=== PATIENT | male | born 2000 | race Caucasian/White ===

== ENCOUNTER 2021-07-06 16:20 | Emergency (ER) | payer MEDICAID, SELFPAY ==
[2021-07-06] MEDS: LORazepam 2 MG/ML VIAL IM (16:42)
[2021-07-06 16:45] VITALS: BMI 20.7
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
--- NOTE | 2021-07-06 17:05 | PC.NURSE ---
Pt non-verbal, unable to make needs known. Refusing vital signs. Pt noted to be jumping up and down in place. Pt on 1:1 at this time. Will continue to monitor.
[2021-07-06 17:23] LABS: COVID-19 Test Negative (Negative)
[2021-07-06] MEDS: Haloperidol Lactate 5 MG/ML VIAL IM (17:32)
[2021-07-06] MEDS: diphenhydrAMINE HCL 50 MG/ML VIAL IM (17:34)
[2021-07-06 18:48] VITALS: RESP 17
--- NOTE | 2021-07-06 22:31 | PC.NURSE ---
Patient pacing back and fortyh was changed due tyo incontinence, offered sandwich, cheese sticks and drink. Awaiting bhn eval and med confirmation by . CHD worker at bedside, will continue to monitor.
[2021-07-06] MEDS: diazePAM 5 MG TABLET 10 MG PO (22:58)
--- NOTE | 2021-07-07 07:55 | PC.NURSE ---
pt pacing in his room change of shift chd sitter.
[2021-07-07] MEDS: diazePAM 5 MG TABLET PO (08:45)
--- NOTE | 2021-07-07 09:45 | PC.NURSE ---
plan is to be discharged back to residential once the ride arrives.
--- NOTE | 2021-07-07 10:46 | PC.NURSE ---
care team called and they are arranging a ride home for the pt. the fpc sitter is present but doesnt have the lock for the seatbelt needed to transport the pt back.
--- NOTE | 2021-07-07 12:44 | PC.NURSE ---
Pt pacing around unit, remaining calm. No aggressive outburst. [facility] respiratory therapist took patient home with safety precautions in place. Pt left without issues.
--- NOTE | 2021-07-07 12:46 | MHC.CARE ---
This ad copy writer spoke with Samara Song [employer] Research Engineer at PT's [facility]. She reports that Pt. can understand some basic signs such as eat, drink, hello, and sign. She states that Pt. exibits grabbing, looking over someones head, ringing of hands, and humming when he is about to get escalated. She reports that escalation was stamping his feet, and banging the reinoso.
== END 2021-07-07 12:46 | disposition home or self-care (01) ==
LOC: HO.ED 19:51
PROVIDERS: Physician Assistant; Emergency Provider Internal Medicine
DX: F91.9 Conduct disorder, unspecified (principal); F41.9 Anxiety disorder, unspecified; F84.0 Autistic disorder; Z20.822 Contact with and (suspected) exposure to COVID-19; Z79.899 Other long term (current) drug therapy
CPT/HCPCS: 87635; 96372; 99284; 99285; J1200; J2060

== ENCOUNTER 2021-07-10 19:05 | Emergency (ER) | payer MEDICAID, SELFPAY ==
--- NOTE | ~2021-07-10 | CT_ITS ---
EXAMINATION: CT FACIAL BONES WITHOUT CONTRAST CLINICAL INFORMATION: Evaluate for dental abscess. Autistic patient. COMPARISON: None. TECHNIQUE: Axial, coronal and sagittal reformats of the maxillofacial structures were obtained. This CT examination was performed using dose optimization techniques as appropriate, variously including the following: *Automated exposure control *Adjustment of mA and/or kV according to patient size (this includes techniques or standardized protocols for targeted exams where dose is matched to indication/reason for exam; i.e. extremities or head) *Use of iterative reconstruction technique DLP: 293 mGy-cm FINDINGS: There is no acute maxillofacial fracture. The pterygoid plates are intact. The zygomatic arches are intact. The lamina papyracea are intact. The orbital rims are intact. There is mild mucosal thickening of the paranasal sinuses. No air-fluid levels are seen. The ostiomeatal complexes are clear. No maxillary periapical disease is seen. The mastoid air cells and visualized middle ear cavities are well-aerated. The orbits are normal. The TMJs are unremarkable. The imaged portions of the brain demonstrate no acute abnormality. CT/CT facial bones wo con IMPRESSION: No acute intracranial process or discrete facial bone fracture. No significant periapical disease nor associated inflammatory changes. No drainable collections.
--- NOTE | ~2021-07-10 | XR_ITS ---
EXAMINATION: XR CHEST CLINICAL INFORMATION: Covid positive COMPARISON: None TECHNIQUE: AP portable view of the chest was obtained. FINDINGS: There is some mild central wall thickening present. No confluent disease is seen. There is a 1.2 x 0.6 cm density in the fifth and sixth right posterior rib interface which may represent vascular rupture but appears somewhat peripheral for that but with rotation of the image may still represent vasculature. A density extrinsic to the body could also be the cause of this finding. Small focus of disease such as pneumonitis or atelectasis may also appear this way. Heart normal size. No evidence of pulmonary edema. No pneumothorax or pleural effusion. XR/XR chest 1V IMPRESSION: Mild central bronchial wall thickening which may be related to lower airways disease/reactive airways disease/viral pneumonitis. No definite confluent pneumonitis. Right lung density as described.
[2021-07-10 19:20] VITALS: RESP 24
[2021-07-10] MEDS: LORazepam 2 MG/ML VIAL IM (19:20)
[2021-07-10] MEDS: diphenhydrAMINE HCL 50 MG/ML VIAL IM (19:20)
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
[2021-07-10 19:35] VITALS: RESP 20; BMI 23.1
[2021-07-10 19:50] VITALS: RESP 20
[2021-07-10] MEDS: Haloperidol Lactate 5 MG/ML VIAL IM (19:55)
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
[2021-07-10 20:04] LABS: COVID-19 Test Positive (Negative)
[2021-07-10 20:05] VITALS: RESP 20
[2021-07-10 20:20] VITALS: RESP 20
[2021-07-10] MEDS: diazePAM 5 MG TABLET 10 MG PO (20:59)
[2021-07-10] MEDS: OLANZapine 10 MG TABLET PO (20:59)
[2021-07-10 21:39] VITALS: O2SAT 98
[2021-07-11] MEDS: LORazepam 1 MG TABLET 2 MG PO ×4 (01:49→21:49)
[2021-07-11] MEDS: OLANZapine 10 MG TABLET PO ×2 (01:49→21:16)
[2021-07-11 02:02] VITALS: BP 174/95; PULSE 108; RESP 20; TEMP 37.2
--- NOTE | 2021-07-11 05:32 | PC.NURSE ---
Patient finally fell sleep at 399, patient was pacing after releasing from restraint @ 2114 which continued until 344, patient received Olanzapine 10 mg and Valium 10 mg PO at 2043 with no effect, received Olanzapine 10 mg and Ativan 2 mg PO at 128 with delayed response, [facility] attempted to reach senior living by calling multiple staff member listed, no answer and response, patient was unable to assess at this time, patient is non-verbal and with no one to reach out, patient will be assessed in the morning, patient is covid positive, requires constant observation, patient is autistic requires constant redirection does well with male staff, patient is incontinence bowel and bladder wears pull up needs extensive ADL support, patient take medication with apple sauce, CHD worker at beside most part of the night, VSS, will continue to monitor.
[2021-07-11] MEDS: HaloperidoL 5 MG TABLET 10 MG PO (06:37)
--- NOTE | 2021-07-11 06:44 | MHC.MBSS ---
Patient just woke up, agitated, throwing things in his room, provider notified/ordered Ativan 2 mg PO and Haldol 10 mg PO, administered as ordered pending effect, will continue to monitor
--- NOTE | 2021-07-11 07:10 | PC.NURSE ---
Report recieved. Pt currently pacing in his room. half-way staff not present at this time. PT non-verbal, waiting to be seen by BHN. PT noted to be coughing frequently, declined offers of food and water.
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
[2021-07-11] MEDS: chlorproMAZINE HCl 100 MG TABLET 200 MG PO ×2 (11:18→19:54)
[2021-07-11] MEDS: diazePAM 5 MG TABLET PO (11:18)
--- NOTE | 2021-07-11 12:45 | PC.NURSE ---
Multiple attempts have been made to assess Pt's vital signs, pt does not allow equipment to be placed. PT incontinent of loose stool multiple times, allows staff to clean him. PT continues coughing frequently. Provider aware
[2021-07-11 14:00] VITALS: RESP 16
--- NOTE | 2021-07-11 17:25 | PC.NURSE ---
PT banging his head forefully against his door and wall, pt redirected multiple times. PT offered and accepted medication. PT continues to refused vital sign assessment.
[2021-07-11] MEDS: chlorproMAZINE HCl 100 MG TABLET PO (18:10)
[2021-07-11] MEDS: diphenhydrAMINE HCL 25 MG TABLET 50 MG PO ×2 (18:10→21:16)
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
[2021-07-11] MEDS: Propranolol HCL 20 MG TABLET PO (19:18)
[2021-07-11] MEDS: OLANZapine 5 MG TABLET PO (19:18)
[2021-07-11] MEDS: diazePAM 5 MG TABLET 10 MG PO (19:18)
[2021-07-11] MEDS: OXcarbazepine 300 MG TABLET PO (19:18)
[2021-07-11 19:27] VITALS: BP 168/114; PULSE 74; RESP 16; O2SAT 93
--- NOTE | 2021-07-11 20:32 | MHC.CARE ---
CARE Team speaks with Amy [facility] group exercise instructor. She states that pt is new to [facility] and [facility], and was previously in DCF custody in a shelter in the [facility]. She reports that staff from shelter are not able to put hands on patient and they are not able to provide much intervention to him when he is in a dysregulated state. Per Nikhil RN, [facility] will assign 1:1 staffing to pt. Plan is for [facility] shelter staff who is here to bring over some sensory toys for pt. Amy states that [facility] has not made much progress in working with pt so far, but their goal is to have him stay in their shelter oysterman once he is stabilized on medications. There is a meeting with [facility] and [facility] tomorrow and plan is for TW to touch base mercedes/ Amy tomorrow. Email is [email or web address] phone number is [phone]. Amy reports that pt does well with sensory tools, but can also becomes overstimulated quickly. 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
[2021-07-11] MEDS: Fluticasone Propionate Nasal 16 GM SPRAY 1 SPRAY NOSTRIL-B (21:47)
[2021-07-12] MEDS: OLANZapine 10 MG TABLET PO ×2 (02:57→13:11)
[2021-07-12] MEDS: LORazepam 1 MG TABLET PO ×3 (02:57→17:39)
[2021-07-12] MEDS: diphenhydrAMINE HCL 25 MG TABLET 50 MG PO (02:57)
--- NOTE | 2021-07-12 05:29 | PC.NURSE ---
Patient was up until 344, pacing in his room, head banding on the door, required multiple redirection, complaint with HS PO medication with no effect, Ativan 2 mg PO and Benadryl 50 mg PO at 2148 with no effect, patient is 1:1 for observation for safety, PRN Ativan 1 mg , Benadryl 50 mg, and Olanzapine 10 mg administered at 025 with delayed effect, patient has been sleeping 344, patient is assessed by N, disposition section [facility]U bed search, patient is Covid +, VSS, patient is incontinent of bowel and bladder, incontinence care provided as and when needed, patient is completely disoriented, will continue to monitor.
--- NOTE | 2021-07-12 07:15 | PC.NURSE ---
patient appears to b e asleep at present, respirations are even and unlabored, patient appears in no distress, patient now attended by staff (1:1)
[2021-07-12] MEDS: Ascorbic Acid 250 MG TABLET PO (09:10)
[2021-07-12] MEDS: diazePAM 5 MG TABLET PO (09:10)
[2021-07-12] MEDS: Omeprazole 20 MG CAPSULE.DR PO (09:11)
[2021-07-12] MEDS: Cholecalciferol (Vitamin D3) 25 MCG TABLET 100 MCG PO (09:11)
[2021-07-12] MEDS: OXcarbazepine 300 MG TABLET PO ×2 (09:11→19:50)
[2021-07-12] MEDS: Propranolol HCL 20 MG TABLET PO ×2 (09:11→14:41)
[2021-07-12] MEDS: chlorproMAZINE HCl 100 MG TABLET 200 MG PO (09:11)
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
--- NOTE | 2021-07-12 13:43 | MHC.CARE ---
CARE Team Social Work Gardener spoke with pts. program manager, Rachel [facility] regarding suggestions and helpful tips for treatment. Social Work Gardener also spoke with the pts. grandmother and guardian. The pts. Grandmother reported that the pts. Mother, Mae may call. Information: Knows some sign language: food, drink, stop, more Loves all food, especially fruit When at baseline, he has good receptive skills (will show you what he wants at times) Walking and pacing helps to get his frustrations out
--- NOTE | 2021-07-12 13:45 | MHC.CARE ---
Per [facility] Pts bedsearch is exhausted
[2021-07-12 14:10] LABS: COVID-19 Test Positive (Negative); IDNOW Serial# 9DD0AD1C
[2021-07-12 14:32] VITALS: BP 113/57; PULSE 90; RESP 14; TEMP 37; O2SAT 98
--- NOTE | 2021-07-12 14:51 | PC.NURSE ---
Patient resting comfortably in bed no s/s of pain or discomfort. Awaiting covid - and placement.
[2021-07-12] MEDS: Acetaminophen 325 MG TABLET 650 MG PO (17:38)
[2021-07-12] MEDS: Ketamine HCl 500 MG/5 ML VIAL 100 MG IM (17:39)
[2021-07-12 17:59] LABS: MANUAL DIFF FLAG NO
[2021-07-12 18:02] LABS: Basophils Percent Auto 0.3 % (0-2); Eosinophils Absolute Auto 0.1 X10*3/uL (0.0-0.4); Eosinophils Percent Auto 1.4 % (0-4); Hematocrit 41.6 % (42.0-52.0); Hemoglobin 14.1 g/dl (14.0-18.0); Imm Gran Abs Auto 0.01 X10*3/uL (0.00-0.03); Imm Gran Pct Auto 0.2 % (0.0-0.4); Lymphocytes Absolute Auto 1.6 X10*3/uL (1.2-4.9); Lymphocytes Percent Auto 26.7 % (20-40); Mean Corpuscular HGB Conc 33.9 g/dl (31.0-36.0); Mean Corpuscular Hemoglobin 27.7 pg (27.0-33.0); Mean Corpuscular Volume 81.7 fL (80.0-98.0); Mean Platelet Volume 13.3 fL (9.4-12.4); Monocytes Absolute Auto 0.7 X10*3/uL (0.1-1.2); Neutrophils Absolute Auto 3.5 x10*3/uL (2.0-8.3); Neutrophils Percent Auto 59.4 % (45-73); Platelet Count 175 X10*3/uL (160-400); Red Blood Count 5.09 X10*6/uL (4.60-5.80); Red Cell Distribution Width 11.9 % (11.0-16.0); White Blood Count 5.9 X10*3/uL (4.8-10.8)
[2021-07-12 18:16] LABS: Lactic Acid 0.7 mmol/L (0.5-2.0)
[2021-07-12 18:17] LABS: Appearance Urine CLEAR; Color Urine YELLOW; Glucose Urine UA NEG (NEG); Leukocyte Esterase Urine NEG (NEG); Nitrite Urine NEG (NEG); PH 7.5 (5.0-8.0); Urine Blood NEG (NEG); Urine Ketones NEG (NEG); Urine Protein NEG (NEG-TRACE)
[2021-07-12 18:20] LABS: Alanine Aminotransferase 55 U/L (0-40); Albumin Level 4.6 g/dL (3.5-5.0); Alkaline Phosphatase 116 U/L (39-117); Anion Gap 13 (12-20); Aspartate Amino Transferase 87 U/L (5-37); Bilirubin Total 0.5 mg/dL (0.0-1.0); Blood Urea Nitrogen 9 mg/dL (9-16); Calcium 10.1 mg/dL (8.4-10.2); Carbon Dioxide 24 mmol/L (22-29); Chloride 105 mmol/L (96-108); Creatinine Clr Calc Pharmacy 151.2; Estimated Glomerular Filt Rate > 60; Glucose Random 112 mg/dL (60-115); Potassium 4.4 mmol/L (3.3-5.1); Sodium 138 mmol/L (135-145); Total Protein 7.5 g/dL (6.5-8.0)
--- NOTE | 2021-07-12 18:38 | PC.NURSE ---
Pt escorted back to the pod from the main ER. Sitter maintained outside the room for safety.
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
--- NOTE | 2021-07-13 05:42 | PC.NURSE ---
Patient slept through the night, no distress observed/reported, VSS, appetite adequate, refused HS medication, elimination intact, incontinence care for both bowel and bladder completed, patient disposition is section 12 [facility] bed search, no update on bed search, group refused to take him back due patient requiring high level of care, patient is COVID +, will continue to monitor.
--- NOTE | 2021-07-13 07:07 | PC.NURSE ---
patient appears to remain asleep at present, respirations are even and unlabored, patient appears in no distress
[2021-07-13] MEDS: chlorproMAZINE HCl 100 MG TABLET 200 MG PO ×3 (08:14→20:35)
[2021-07-13] MEDS: Propranolol HCL 20 MG TABLET PO ×3 (08:15→20:35)
[2021-07-13] MEDS: OLANZapine 10 MG TABLET PO ×3 (08:15→20:36)
[2021-07-13] MEDS: OXcarbazepine 300 MG TABLET PO ×2 (08:15→20:35)
[2021-07-13] MEDS: Ascorbic Acid 250 MG TABLET PO (08:16)
[2021-07-13] MEDS: diazePAM 5 MG TABLET PO ×2 (08:17→14:16)
--- NOTE | 2021-07-13 10:15 | MHC.CARE ---
CARE Team spoke with Ana Dominguez from [facility]. There is no current placement reported for Pt aside from [facility] who is declining to take Pt back to the program. CARE Team request timely updates regarding placement for Pt. CARE Team continues advocate Pt needs to be discharged from the ED as there is no medical or menta need for Pt to be boarding in the ED. CARE Team communicated with CARE Sales Ledger Administrator ROMAN Beltran regarding conversation with [facility].
--- NOTE | 2021-07-13 10:19 | MHC.CARE ---
CARE Team completed [facility] regarding [facility] in the ED. [facility] report # [id number]
--- NOTE | 2021-07-13 10:42 | MHC.CARE ---
CARE Team filed verbal [facility] report #[id number] and requested emergency response.
--- NOTE | 2021-07-13 13:16 | MHC.CARE ---
CARE Team received call from Rachel Truong [facility] Program Manger and [place], Pts guardian reporting they both do want him to be discharged and do not feel safe with the plan. T/w informed both parties that the disposition was collaborative deciosn made my hospital providers. CARE Team informed parties that the disagreement with digestion would be relied to CARE Plant Operations Manager Magaly Cardenas, [facility]. Magaly to be notified via [employer]
--- NOTE | 2021-07-13 20:00 | MHC.CARE ---
CARE team completed rounding on pt re: his behavior and overall functioning throughout today. He has spent the majority of the day laying in bed and taking naps, he has been eating meals and taking medications, and there have been no episodes of agitation or aggression. The nurse reported that yesterday he was engaging in brief episodes of light head banging and was otherwise able to maintain behavioral control. This lead technical writer has observed pt laying in his bed in pod room 1, with no behavioral escalations to be noted. Pt's grandmother contacted CARE team requesting to speak with someone about what the current plan of care is. She expressed that she has new concerns after speaking with half-way staff, and feels that the pt will need to be restabilized on his previous medications and may not be safe to return to the half-way at this time. This lead technical writer informed pt's grandmother that with this being a long holiday weekend, it's likely that he will continue to board in the ED until Thursday or Thursday when [facility]DS and the hospital's clinical team are able to engage in conversation regarding discharge planning. She was encouraged to call back at that time. CARE steam and power supervisor updated.
[2021-07-13] MEDS: diphenhydrAMINE HCL 25 MG TABLET 50 MG PO (20:35)
[2021-07-13] MEDS: diazePAM 5 MG TABLET 10 MG PO (20:36)
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
[2021-07-14] MEDS: diphenhydrAMINE HCL 25 MG TABLET 50 MG PO (04:12)
[2021-07-14] MEDS: LORazepam 1 MG TABLET 2 MG PO (04:12)
[2021-07-14 04:30] VITALS: BP 128/67; PULSE 84; RESP 16; TEMP 36.8; O2SAT 99
--- NOTE | 2021-07-14 05:12 | PC.NURSE ---
Addendum entered by Rohini Banegas, [facility] 07/14/21 11:27: Pt is not a DDU bedsearch Original Note: Patient slept through the night, no distress observed/reported, behavior calm and quiet most part of the evening, restless at around 0400 administered PRN Ativan 2 mg PO and Benadryl 50 mg PO at 0410 with + effect, VSS, patient disposition is section 12 [facility]U bed search, care team is coordinating with [facility] with possible d/c back to [facility],appetite good, elimination intact, patient is completely dependent on ADL care, will continue to monitor.
--- NOTE | 2021-07-14 07:04 | PC.NURSE ---
patient appears to remain asleep at present respirations are even and unlabored, paitent appears in no distress
[2021-07-14] MEDS: chlorproMAZINE HCl 100 MG TABLET 200 MG PO (09:02)
[2021-07-14] MEDS: diazePAM 5 MG TABLET PO (09:02)
[2021-07-14] MEDS: OXcarbazepine 300 MG TABLET PO (09:02)
[2021-07-14] MEDS: OLANZapine 10 MG TABLET PO ×3 (09:02→20:02)
[2021-07-14] MEDS: Propranolol HCL 20 MG TABLET PO ×3 (09:02→20:02)
[2021-07-14 10:47] LABS: COVID-19 Test Positive (Negative); IDNOW Serial# 08D9AD1C
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
--- NOTE | 2021-07-14 12:26 | MHC.CARE ---
CARE Team speaks with CHERRIE Hackett from [facility]. CARE Team has coordinated with Khushbu Peralta NP who has made changes to pt's medications. Roxann will be sending over a doctor's order that CARE Team will give to ED provider. Roxann asks that pt remain in the ED until tomorrow morning due to their staffing issues at [facility]. Pt is medically and psychiatrically cleared for discharge at this time. [facility] has been asked by to pick pt up.
--- NOTE | 2021-07-14 14:22 | MHC.CARE ---
CARE Team notified Pts guardian regarding plan of care to return to detention tomorrow- she stated Okay but I am not happy about it .
--- NOTE | 2021-07-14 15:56 | PC.NURSE ---
discussed with marcy john patient level of sedation today and yesterday. she asked me to adrianne brooke and i spoke to pharmacy in regards to changing depakote to sprinkles to facilitate easier administration
--- NOTE | 2021-07-14 18:52 | MHC.CARE ---
CARE team was contacted by Ruth from [facility] re: plan for pt to return to the retirement. She inquired if it would be possible to have him transported by ambulance, as she isn't able to arrange for a med certified staff person to facilitate the pick-up from the hospital. She also requested that some of the medication scripts be sent to [facility] on [facility] in [place], as their typical pharmacy would not be able to prepare the medications in bubble packs in a timely enough fashion. Her final request is for the pt to have his morning medications administered prior to discharge and that the retirement be contacted when he is leaving the hospital so they know when to expect him. This marketing writer contacted pt's grandmother, Lorie, to obtain verbal consent to arrange for the ambulance for transport in the morning. Verbal consent was given. ED worksheet completed and is in pt's chart. Plan for the morning has been communicated to pod nursing.
[2021-07-14] MEDS: diazePAM 5 MG TABLET 10 MG PO (20:02)
[2021-07-14] MEDS: Divalproex Sodium Sprinkles 125 MG CAP.DR.SPR 500 MG PO (20:02)
[2021-07-14] MEDS: Fluticasone Propionate Nasal 16 GM SPRAY 1 SPRAY NOSTRIL-B (20:47)
[2021-07-15] MEDS: diphenhydrAMINE HCL 25 MG TABLET 50 MG PO (05:12)
--- NOTE | 2021-07-15 05:54 | PC.NURSE ---
Patient slept through the night, no distress observed/reported, medication compliant, patient was observed at time smiling at staff member and tried to provides little support during incontinence care, slightly restless towards morning, Benadryl 50 mg administered at 0530, patient had supervised walk for 10 minutes, care team is coordinating patient's discharge home, will continue to monitor.
--- NOTE | 2021-07-15 07:00 | PC.NURSE ---
patient appears to remain asleep at present respirations are even and unlabored patient appears in no distress
[2021-07-15] MEDS: OLANZapine 10 MG TABLET PO (08:11)
[2021-07-15] MEDS: diazePAM 5 MG TABLET PO (08:11)
[2021-07-15] MEDS: Divalproex Sodium Sprinkles 125 MG CAP.DR.SPR 500 MG PO (08:11)
[2021-07-15] MEDS: Propranolol HCL 20 MG TABLET PO (08:12)
[2021-07-15] MEDS: Omeprazole 20 MG CAPSULE.DR PO (08:12)
--- NOTE | 2021-07-15 09:40 | MHC.CARE ---
CARE Team spoke with Jaquan - ambulance will be here at [facility] at 10am for transport. skilled nursing staff may come here to support in transition / transfer.
--- NOTE | 2021-07-15 10:50 | MHC.CARE ---
CARE Team updated [facility] to [facility] Cust[facility]ial .
== END 2021-07-15 10:28 | disposition other institution (70) ==
PROVIDERS: Internal Medicine; Physician Assistant; Emergency Provider Emergency Medicine
DX: F91.9 Conduct disorder, unspecified (principal); U07.1 COVID-19; F84.0 Autistic disorder; R45.6 Violent behavior; R00.0 Tachycardia, unspecified; F41.9 Anxiety disorder, unspecified; Z79.899 Other long term (current) drug therapy
CPT/HCPCS: 36415; 70486; 71045; 80053; 81003; 83605; 85025; 87040; 87635; 96372; 99285; J1200; J2060; Q0163

== ENCOUNTER 2022-01-03 21:05 | Emergency (ER) | payer MEDICAID, SELFPAY ==
[2022-01-03 21:10] VITALS: BP 127/75; PULSE 75; RESP 18; TEMP 36.4; O2SAT 100; BMI 20.9
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
== END 2022-01-03 21:48 | disposition home or self-care (01) ==
PROVIDERS: Emergency Provider Internal Medicine
DX: Z04.1 Encounter for examination and observation following transport accident (principal)
CPT/HCPCS: 99282; 99283

== ENCOUNTER 2022-06-11 09:09 | Emergency (ER) | payer MEDICAID, SELFPAY ==
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
[2022-06-11 09:48] VITALS: BP 141/85; BP 147/89; PULSE 93; O2SAT 96; BMI 23.1
== END 2022-06-11 10:59 | disposition home or self-care (01) ==
PROVIDERS: Emergency Provider Student in an Organized Health Care Education/Training Program
DX: Z04.1 Encounter for examination and observation following transport accident (principal)
CPT/HCPCS: 99282; 99283

== ENCOUNTER 2022-11-07 16:43 | Emergency (ER) | payer OTHER, SELFPAY ==
[2022-11-07 16:46] VITALS: BP 153/76; PULSE 87; RESP 20; TEMP 36.6; O2SAT 99; BMI 19.0
--- NOTE | 2022-11-07 16:46 | ED_ITS ---
HPI - Fall General Chief Complaint: Wound/Laceration <ABRAN Castrejon - Last Filed: 11/07/22 16:50> Stated Complaint: Fall/ gnosticist injury <ABRAN Castrejon - Last Filed: 11/07/22 16:50> Time Seen by Provider: 11/07/22 22:12 <ABRAN Castrejon - Last Filed: 11/07/22 16:50> Source: other ([employer] ) <ABRAN Segura Last Filed: 11/07/22 22:45> Mode of arrival: ambulatory <ABRAN Segura Last Filed: 11/07/22 22:45> Limitations: other (autism ) <ABRAN Segura Last Filed: 11/07/22 22:45> History of Present Illness HPI Narrative: 22-year-old male history of autism, nonverbal, presenting to the emergency department with a laceration to the right gnosticist, according to [employer] patient tripped when he was going into the shower to get a bath, bumped his head on the counter sustaining a laceration, no loss of consciousness, abnormal behavior, nausea, vomiting, fevers, chills, seizure-like activity or changes in behavior ever since this happened. Patient has been acting his normal self. Ambulatory without difficulty. Patient able to follow basic commands. <ABRAN Segura Last Filed: 11/07/22 22:45> Related Data Home Medications: Home Medications Medication Instructions Recorded Confirmed diazepam 10 mg tablet 10 mg PO BEDTIME 07/06/21 07/11/21 acetaminophen 650 mg tablet 650 mg PO Q6H PRN Pain 07/11/21 07/11/21 ascorbic acid (vitamin C) 250 mg 250 mg PO DAILY 07/11/21 07/11/21 tablet (Vitamin C) bisacodyl 5 mg tablet 10 mg PO DAILY PRN Constipation 07/11/21 07/11/21 cholecalciferol (vitamin D3) 100 100 mcg PO DAILY 07/11/21 07/11/21 mcg (4,000 unit) capsule fluticasone propionate 100 1 inh inhalation BID 07/11/21 07/11/21 mcg/actuation blister powder for inhalation fluticasone propionate 50 1 spray intranasal BID 07/11/21 07/11/21 mcg/actuation nasal spray,suspension food supplemt, lactose-reduced 1 ea PO TIDWMEAL 07/11/21 07/11/21 (Ensure Original oral liquid) melatonin 3 mg capsule 6 mg PO BEDTIME PRN Insomnia 07/11/21 07/11/21 olanzapine 5 mg disintegrating 5 mg PO BEDTIME 07/11/21 07/11/21 tablet omeprazole 20 mg capsule,delayed 20 mg PO DAILY 07/11/21 07/11/21 release oxcarbazepine 300 mg tablet 300 mg PO BID 07/11/21 07/11/21 polyethylene glycol 3350 17 gram 17 g PO DAILY 07/11/21 07/11/21 oral powder packet Previous Rx's Medication Instructions Recorded chlorpromazine 100 mg tablet 200 mg PO TID #90 tabs 07/14/21 diazepam 5 mg tablet 5 mg PO BID #60 tabs 07/14/21 diazepam 5 mg tablet 5 mg PO BID PRN agitation #30 tabs 07/14/21 diazepam 5 mg tablet 5 mg PO BID@0800,1300 #60 tabs 07/14/21 diazepam 5 mg tablet 10 mg PO BEDTIME #60 tabs 07/14/21 divalproex 500 mg tablet,delayed 500 mg PO BID #60 tabs 07/14/21 release divalproex 500 mg tablet,delayed 500 mg PO BID #60 tabs 07/14/21 release (Depakote) olanzapine 10 mg tablet 10 mg PO TID #90 tabs 07/14/21 propranolol 20 mg tablet 20 mg PO TID #90 tabs 07/14/21 bisacodyl 5 mg tablet 5 mg PO BEDTIME 30 days #30 tabs 07/15/21 diazepam 10 mg tablet 10 mg PO BEDTIME PRN anxiety #30 07/15/21 tabs diphenhydramine HCl 25 mg tablet 50 mg PO Q6H PRN excessive 07/15/21 (Benadryl Allergy) salivation 30 days #60 tabs divalproex 500 mg tablet,delayed 500 mg PO BID 30 days #60 tabs 07/15/21 release (Depakote) fluticasone propionate 100 1 inh inhalation BID #60 ea 07/15/21 mcg/actuation blister powder for inhalation fluticasone propionate 50 1 spray intranasal BID #16 grams 07/15/21 mcg/actuation nasal spray,suspension (Flonase Allergy Relief) food supplemt, lactose-reduced 1 ea PO TID 30 days #5,688 mL 07/15/21 (Ensure oral liquid) melatonin 3 mg capsule 6 mg PO BEDTIME PRN sleep 30 days 07/15/21 olanzapine 10 mg tablet (Zyprexa) 10 mg PO TID 30 days #90 tabs 07/15/21 olanzapine 5 mg tablet (Zyprexa) 5 mg PO BEDTIME 30 days #30 tabs 07/15/21 omeprazole 20 mg capsule,delayed 20 mg PO DAILY #30 caps 07/15/21 release oxcarbazepine 300 mg tablet 300 mg PO BID 30 days #60 tabs 07/15/21 pantoprazole 20 mg tablet,delayed 20 mg PO TID 30 days #90 tabs 07/15/21 release (Protonix) polyethylene glycol 3350 17 gram 17 g PO DAILY #100 ea 07/15/21 oral powder packet (Miralax) <ABRAN Castrejon - Last Filed: 11/07/22 16:50> Allergies/Adverse Reactions: Allergies Allergy/AdvReac Type Severity Reaction Status Date / Time cephalexin [From Keflex] Allergy Unknown Verified 11/07/22 16:51 coconut Allergy Unknown Verified 11/07/22 16:51 sulfamethoxazole Allergy Unknown Verified 11/07/22 16:51 [From Bactrim] trimethoprim [From Bactrim] Allergy Unknown Verified 11/07/22 16:51 <ABRAN Castrejon Last Filed: 11/07/22 16:50> Review of Systems Review of Systems: Constitutional : No Fever, No Chills, Cardiovascular : No Chest Pain, No SOB Respiratory : No Dyspnea Gastrointestinal : No abdominal pain Musculoskeletal : No Joint Swelling Skin : No rash, positive skin laceration Neuro : No Weakness, No Numbness Psych : No SI/HI <ABRAN Segura Last Filed: 11/07/22 22:45> Yes all other systems are reviewed and are negative <ABRAN Segura Last Filed: 11/07/22 22:45> [facility] Past Medical History Attestation statement: The following information was validated with the patient. <ABRAN Segura - Last Filed: 11/07/22 22:45> Source: old records reviewed and nursing notes reviewed <ABRAN Segura - Last Filed: 11/07/22 22:45> Social History Social History: Social History Alcohol intake: never Smoked in Last 30 Days: No Use of substances other than those prescribed or required for medical reasons: No Advance Directives: No Advance Directives Information Provided: No <ABRAN Castrejon - Last Filed: 11/07/22 16:50> Physical Exam Vital Signs: Vital Signs: Last Vital Signs Temp 97.9 F 11/07/22 16:46 Pulse 67 11/07/22 19:08 Resp 14 11/07/22 19:08 BP 111/94 H 11/07/22 19:08 Pulse Ox 96 11/07/22 19:08 O2 Del Method Room Air 11/07/22 19:08 BMI result Body Mass Index 19.0 <ABRAN Castrejon - Last Filed: 11/07/22 16:50> Vital Signs: Last Vital Signs Temp 97.9 F 11/07/22 16:46 Pulse 67 11/07/22 19:08 Resp 14 11/07/22 19:08 BP 111/94 H 11/07/22 19:08 Pulse Ox 96 11/07/22 19:08 O2 Del Method Room Air 11/07/22 19:08 BMI result Body Mass Index 19.0 vss <ABRAN Segura - Last Filed: 11/07/22 22:45> Appearance: Alert.?, moving all extremities, normal tone, appropriate for patient's baseline? No acute distress.? Head: Normocephalic, atraumatic, no step-offs or deformities. No signs of depressed skull fracture or skull fracture in general or facial fractures. Eyes: Pupils equal, round and reactive to light.? ENT: Pharynx normal.? Neck: Normal inspection.? Neck supple.? CVS: Normal heart rate and rhythm.? Pulses normal.? Respiratory: No respiratory distress.? Breath sounds normal.? Abdomen: Soft and nontender.? Skin: Skin warm and dry.? Normal skin color.? Normal skin turgor.? + 3 cm superficial lac to R. gnosticist region involvng only epidermis no FB. Extremities: No lower extremity edema.? No calf ttp. 5/5 strength to bilateral upper and lower extremities Neuro: Alert, moving all extremities, normal tone, appropriate for patient's baseline. No motor deficit.? No sensory deficit. Ambulating with steady gait around room with normal coordination. Normal rapid alternating movements. <ABRAN Segura - Last Filed: 11/07/22 22:45> Course Course Course Narrative: RME: 22 yo M w/PMHx autism, c/o laceration to right side of face s/p trip & fall in bathroom 1 hour [employer]. Vaccinations up-to-date. Denies LOC, nausea/vomiting +1 inch superficial laceration noted to right pre-auricular area Head CT ordered, wound will need repair Full HPI, ROS and PE to be performed by primary ED provider. <ABRAN Castrejon - Last Filed: 11/07/22 16:50> Reevaluation(s) Reevaluation #1: Area was cleaned common successfully closed with Dermabond, patient tolerated procedure well. Steri-Strips applied overlying. Educated patient on diagnosis and treatment plan, answered all question, patient verbalizes understanding. At this time patient will be discharged home, advised to return with new or worsening symptoms. Educated on worrisome signs and symptoms and when to return. At this time I feel comfortable discharge home. 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 <ABRAN Segura - Last Filed: 11/07/22 22:45> Time: 22:44 <ABRAN Segura - Last Filed: 11/07/22 22:45> Medical Decision Making Medical Decision Making MDM Narrative: 22-year-old nonverbal autistic male presents with laceration to right gnosticist region status post trip and fall going into the bathroom, no loss of consciousness. Physical exam 3 cm simple laceration to right gnosticist region. Patient acting his normal self per staff worker at the bedside. Plan at this time is Dermabond, sutures would be very difficult on this patient and risks of sedation outweigh benefits. Risk for scarring described to work at the bedside who agrees that Dermabond would be better than sutures, [place] head CT states CT Unnecessary The [place] Head CT Rule suggests a head CT is not necessary for this patient (sensitivity 83-100% for all intracranial traumatic findings, sensitivity 100% for findings requiring neurosurgical intervention). Likely concussion with simple laceration. I do not suspect intracranial hemorrhage, stroke, posterior stroke. No signs of facial or skull fractures. <ABRAN Segura Last Filed: 11/07/22 22:45> Differential Diagnosis Differential Diagnoses: The differential diagnosis associated with the presentation includes <ABRAN Segura - Last Filed: 11/07/22 22:45> Likely concussion with simple laceration. I do not suspect intracranial hemorrhage, stroke, posterior stroke. No signs of facial or skull fractures. <ABRAN Segura - Last Filed: 11/07/22 22:45> Tests considered The following testing was considered but not selected: Considered head CT however based off [place] head CT injury/trauma rule unnecessary <ABRAN Segura - Last Filed: 11/07/22 22:45> Core Measures AMI core measures followed: Yes <ABRAN Segura - Last Filed: 11/07/22 22:45> Measure exclusions: not indicated <ABRAN Segura Last Filed: 11/07/22 22:45> Discharge Plan Discharge Clinical Impression: Autism spectrum disorder, Laceration, Concussion <ABRAN Castrejon Last Filed: 11/07/22 16:50> Patient Disposition: Home, Self-Care <ABRAN Castrejon Last Filed: 11/07/22 16:50> Instructions: Concussion (ED), Combs Coma Scale (ED), Post Concussion Syndrome (ED) <ABRAN Castrejon Last Filed: 11/07/22 16:50> Additional Instructions: Take your medications as prescribed. If you were prescribed antibiotics today, it is important that you take your medication to their entirety, do not skip any doses, do not finish them early. Follow-up with your primary care provider this week. Return to the emergency department with new or worsening symptoms. Such as fevers, chills, chest pain, shortness of breath, nausea, vomiting, dizziness, headache, vision changes, lethargy, seizure-like activity or any changes in behavior. In case of emergency call 911 These allow glue to fall out on its own. No need to return for removal. <ABRAN Castrejon - Last Filed: 11/07/22 16:50> Prescriptions: No Action diazepam 10 mg Tablet 10 mg PO BEDTIME fluticasone propionate 50 mcg/actuation spray,suspension 1 spray intranasal BID Rx Instructions: each nostril olanzapine 5 mg tablet,disintegrating 5 mg PO BEDTIME ascorbic acid (vitamin C) [Vitamin C] 250 mg Tablet 250 mg PO DAILY fluticasone propionate 100 mcg/actuation Blister With Device 1 inh INHALATION BID omeprazole 20 mg Capsule,Delayed Release(Dr/Ec) 20 mg PO DAILY Vitamin D3 100 mcg (4,000 unit) Capsule 100 mcg PO DAILY polyethylene glycol 3350 17 gram Powder In Packet 17 g PO DAILY oxcarbazepine 300 mg Tablet 300 mg PO BID acetaminophen 650 mg Tablet 650 mg PO Q6H PRN (Reason: Pain) bisacodyl 5 mg Tablet 10 mg PO DAILY PRN (Reason: Constipation) Ensure Original Liquid 1 ea PO TIDWMEAL melatonin 3 mg Capsule 6 mg PO BEDTIME PRN (Reason: Insomnia) propranolol 20 mg Tablet 20 mg PO TID Qty: 90 0RF Protocol: Hold for SBP/HR < HOLD for SBP < : 90 HOLD for HR < : 60 chlorpromazine 100 mg Tablet 200 mg PO TID Qty: 90 0RF diazepam 5 mg Tablet 10 mg PO BEDTIME Qty: 60 0RF diazepam 5 mg Tablet 5 mg PO BID@0800,1300 Qty: 60 0RF divalproex 500 mg Tablet,Delayed Release (Dr/Ec) 500 mg PO BID Qty: 60 0RF olanzapine 10 mg Tablet 10 mg PO TID Qty: 90 0RF diazepam 5 mg tablet 5 mg PO BID Qty: 60 0RF diazepam 5 mg tablet 5 mg PO BID PRN (Reason: agitation) Qty: 30 0RF divalproex [Depakote] 500 mg tablet,delayed release (DR/EC) 500 mg PO BID Qty: 60 0RF bisacodyl 5 mg tablet 5 mg PO BEDTIME 30 Days Qty: 30 0RF diazepam 10 mg tablet 10 mg PO BEDTIME PRN (Reason: anxiety) Qty: 30 0RF olanzapine [Zyprexa] 10 mg tablet 10 mg PO TID 30 Days Qty: 90 0RF fluticasone propionate 100 mcg/actuation blister with device 1 inh inhalation BID Qty: 60 0RF fluticasone propionate [Flonase Allergy Relief] 50 mcg/actuation spray,suspension 1 spray intranasal BID Qty: 16 0RF Rx Instructions: administer into each nostril Ensure Liquid 1 ea PO TID 30 Days Qty: 5688 0RF divalproex [Depakote] 500 mg tablet,delayed release (DR/EC) 500 mg PO BID 30 Days Qty: 60 0RF melatonin 3 mg capsule 6 mg PO BEDTIME PRN (Reason: sleep) 30 Days 0RF olanzapine [Zyprexa] 5 mg tablet 5 mg PO BEDTIME 30 Days Qty: 30 0RF diphenhydramine HCl [Benadryl Allergy] 25 mg tablet 50 mg PO Q6H PRN (Reason: excessive salivation) 30 Days Qty: 60 0RF omeprazole 20 mg capsule,delayed release(DR/EC) 20 mg PO DAILY Qty: 30 0RF polyethylene glycol 3350 [Miralax] 17 gram powder in packet 17 g PO DAILY Qty: 100 0RF pantoprazole [Protonix] 20 mg tablet,delayed release (DR/EC) 20 mg PO TID 30 Days Qty: 90 0RF oxcarbazepine 300 mg tablet 300 mg PO BID 30 Days Qty: 60 0RF <ABRAN Castrejon - Last Filed: 11/07/22 16:50> Referrals: Physician,Unknown J [Primary Care Provider] - 2 days <ABRAN Castrejon - Last Filed: 11/07/22 16:50> Stand Alone Forms: Work/School Release <ABRAN Castrejon - Last Filed: 11/07/22 16:50>
[2022-11-07 19:08] VITALS: BP 111/94; PULSE 67; RESP 14; O2SAT 96
== END 2022-11-07 22:41 | disposition home or self-care (01) ==
PROVIDERS: Emergency Provider Internal Medicine
DX: F84.0 Autistic disorder (principal); S06.0X0A Concussion without loss of consciousness, initial encounter; S01.81XA Laceration without foreign body of other part of head, initial encounter; W18.2XXA Fall in (into) shower or empty bathtub, initial encounter; Y93.E1 Activity, personal bathing and showering; Y92.041 Bathroom in boarding-house as the place of occurrence of the external cause; Y99.9 Unspecified external cause status
CPT/HCPCS: 12011; 99282; 99283; 99284

== ENCOUNTER 2025-06-01 09:45 | Emergency (ER) | payer OTHER, SELFPAY ==
[2025-06-01] VITALS (8 sets, daily range): BP systolic 86–127; BP diastolic 50–82; PULSE 54–82; RESP 15–16; TEMP 36.1–36.4; O2SAT 98–100; BMI 18.4
--- NOTE | ~2025-06-01 | CT_ITS ---
EXAMINATION: CT HEAD WITHOUT CONTRAST CLINICAL INFORMATION: head injury, tired COMPARISON: None available. TECHNIQUE: Contiguous axial imaging was performed from the skull base to vertex without intravenous administration of contrast. This CT examination was performed using dose optimization techniques as appropriate, variously including the following: *Automated exposure control *Adjustment of mA and/or kV according to patient size (this includes techniques or standardized protocols for targeted exams where dose is matched to indication/reason for exam; i.e. extremities or head) *Use of iterative reconstruction technique DLP: 749.34 mGy-cm FINDINGS: No acute cortical disruption in the bony calvarium or the skull base. No acute intracranial hemorrhage, mass effect, midline shift, hydrocephalus or herniation. Hodgson-white matter differentiation is normal. Posterior cranial fossa contents demonstrated no acute hemorrhage or mass effect. Normal position of the cerebellar tonsils. Sellar/suprasellar region demonstrated no gross masses. No air-fluid levels in the paranasal sinuses. Tympanic cavities and mastoid cells are aerated. CT/CT cervical spine wo IV con IMPRESSION: No acute fracture, bony calvarium. No acute intracranial hemorrhage or acute brain abnormality by CT. EXAMINATION: CT CERVICAL SPINE WITHOUT CONTRAST CLINICAL INFORMATION: Injury. COMPARISON: None available. TECHNIQUE: Contiguous axial images through the cervical spine using 3 mm collimation with bone and soft tissue algorithm. Sagittal and coronal reformatted images acquired. This CT examination was performed using dose optimization techniques as appropriate, variously including the following: *Automated exposure control *Adjustment of mA and/or kV according to patient size (this includes techniques or standardized protocols for targeted exams where dose is matched to indication/reason for exam; i.e. extremities or head) *Use of iterative reconstruction technique. DLP: 285.36 mGy-cm FINDINGS: Craniocervical junction is intact with normal alignment between the occipital condyles and lateral masses of C1. Inadequate position of the cervical spine with the head tilted to the right side. C1 is intact. C2 is intact. C3 is intact. C4 is intact. C5 is intact. C6 is intact. C7 is intact. No prevertebral compartment hematoma. IMPRESSION: No acute fracture or trauma-related listhesis. Fleischner guidelines were followed. EXAMINATION: CT FACIAL BONES WITHOUT CONTRAST CLINICAL INFORMATION: Injury, black eye. COMPARISON: None available. TECHNIQUE: Contiguous axial images through the maxillofacial bones using 3 mm collimation with bone and soft tissue algorithm. Sagittal and coronal reformatted images acquired. This CT examination was performed using dose optimization techniques as appropriate, variously including the following: *Automated exposure control *Adjustment of mA and/or kV according to patient size (this includes techniques or standardized protocols for targeted exams where dose is matched to indication/reason for exam; i.e. extremities or head) *Use of iterative reconstruction technique. DLP: 269.88. mGy-cm FINDINGS: Comminuted cortical disruption in the nasal bones. Nasal septum and vomer are intact. The orbital rims, orbital fissures and orbital apices are intact. The eyeballs are intact. No intraconal or extraconal compartment hematoma. Soft tissue contusion the preseptal right periorbital/forehead region. Maxilla and pterygoid plates are intact. Mandible is intact. Temporomandibular joints are intact. No air-fluid levels in the paranasal sinuses. Polypoid mucosal thickening, right maxillary sinus. Tympanic cavities and mastoid cells are aerated. Pneumatized left petrous apex, congenital. Pneumatized right pterygoid recess of the sphenoid sinus. Pneumatized anterior clinoid, bilaterally. IMPRESSION: Comminuted fractures, nasal bones. Electronically signed by: James Zaragoza MD 06/01/2025 11:40 AM [facility]
--- NOTE | 2025-06-01 10:49 | ED.HEATRA ---
HPI - Head Injury General Chief complaint: Head Injury Stated complaint: Redness R eye Time Seen by Provider: 06/01/25 10:21 Source: patient and other (nursing home staff) Mode of arrival: ambulatory Limitations: no limitations History of Present Illness ED Provider: PAULETTE PALOMINO PA-C HPI Narrative: 24 year old nonverbal male with pmhx significant for autism presents to the ED today with nursing home staff for evaluation following a head injury. Patient is quite sedated on my initial interview, not participating in history/exam. There are two individuals at bedside who are staff from his nursing home. They state that patient has self harming tendencies including hitting his head against reinoso multiple times throughout the day. He has a black eye. The last time he struck his head was yesterday. They state that patient has difficulty falling asleep and has been awake for the last three days. He has apparently been getting PRN medication to help him sleep which has not been working. They report administering 300 mg Thorazine and 5 mg Inderal last night along with 10 mg Valium this morning. They state that he is tired at present due to these medications. They are unaware of any other trauma/ falls. He has otherwise been acting his baseline. No vomiting. Related Data Home Medications ?Medication ?Instructions ?Recorded ?Confirmed diazepam 10 mg tablet 10 mg PO BEDTIME 07/06/21 07/11/21 acetaminophen 650 mg tablet 650 mg PO Q6H PRN Pain 07/11/21 07/11/21 ascorbic acid (vitamin C) 250 mg 250 mg PO DAILY 07/11/21 07/11/21 tablet (Vitamin C) bisacodyl 5 mg tablet 10 mg PO DAILY PRN Constipation 07/11/21 07/11/21 cholecalciferol (vitamin D3) 100 100 mcg PO DAILY 07/11/21 07/11/21 mcg (4,000 unit) capsule fluticasone propionate 100 1 inh inhalation BID 07/11/21 07/11/21 mcg/actuation blister powder for inhalation fluticasone propionate 50 1 spray intranasal BID 07/11/21 07/11/21 mcg/actuation nasal spray,suspension food supplemt, lactose-reduced 1 ea PO TIDWMEAL 07/11/21 07/11/21 (Ensure Original oral liquid) melatonin 3 mg capsule 6 mg PO BEDTIME PRN Insomnia 07/11/21 07/11/21 olanzapine 5 mg disintegrating 5 mg PO BEDTIME 07/11/21 07/11/21 tablet omeprazole 20 mg capsule,delayed 20 mg PO DAILY 07/11/21 07/11/21 release oxcarbazepine 300 mg tablet 300 mg PO BID 07/11/21 07/11/21 polyethylene glycol 3350 17 gram 17 g PO DAILY 07/11/21 07/11/21 oral powder packet Previous Rx's ?Medication ?Instructions ?Recorded chlorpromazine 100 mg tablet 200 mg (2 x 100 mg) PO TID #90 tabs 07/14/21 diazepam 5 mg tablet 5 mg PO BID #60 tabs 07/14/21 diazepam 5 mg tablet 5 mg PO BID PRN agitation #30 tabs 07/14/21 diazepam 5 mg tablet 5 mg PO BID@0800,1300 #60 tabs 07/14/21 diazepam 5 mg tablet 10 mg (2 x 5 mg) PO BEDTIME #60 07/14/21 tabs divalproex 500 mg tablet,delayed 500 mg PO BID #60 tabs 07/14/21 release divalproex 500 mg tablet,delayed 500 mg PO BID #60 tabs 07/14/21 release (Depakote) olanzapine 10 mg tablet 10 mg PO TID #90 tabs 07/14/21 propranolol 20 mg tablet 20 mg PO TID #90 tabs 07/14/21 bisacodyl 5 mg tablet 5 mg PO BEDTIME 30 days #30 tabs 07/15/21 diazepam 10 mg tablet 10 mg PO BEDTIME PRN anxiety #30 07/15/21 tabs diphenhydramine HCl 25 mg tablet 50 mg (2 x 25 mg) PO Q6H PRN 07/15/21 (Benadryl Allergy) excessive salivation 30 days #60 tabs divalproex 500 mg tablet,delayed 500 mg PO BID 30 days #60 tabs 07/15/21 release (Depakote) fluticasone propionate 100 1 inh inhalation BID #60 ea 07/15/21 mcg/actuation blister powder for inhalation fluticasone propionate 50 1 spray intranasal BID #16 grams 07/15/21 mcg/actuation nasal spray,suspension (Flonase Allergy Relief) food supplemt, lactose-reduced 1 ea PO TID 30 days #5,688 mL 07/15/21 (Ensure oral liquid) melatonin 3 mg capsule 6 mg (2 x 3 mg) PO BEDTIME PRN 07/15/21 sleep 30 days olanzapine 10 mg tablet (Zyprexa) 10 mg PO TID 30 days #90 tabs 07/15/21 olanzapine 5 mg tablet (Zyprexa) 5 mg PO BEDTIME 30 days #30 tabs 07/15/21 omeprazole 20 mg capsule,delayed 20 mg PO DAILY #30 caps 07/15/21 release oxcarbazepine 300 mg tablet 300 mg PO BID 30 days #60 tabs 07/15/21 pantoprazole 20 mg tablet,delayed 20 mg PO TID 30 days #90 tabs 07/15/21 release (Protonix) polyethylene glycol 3350 17 gram 17 g PO DAILY #100 ea 07/15/21 oral powder packet (Miralax) Allergies Allergy/AdvReac Type Severity Reaction Status Date / Time cephalexin (From Keflex) Allergy Unknown Verified 06/01/25 10:00 coconut Allergy Unknown Verified 06/01/25 10:00 sulfamethoxazole (From Allergy Unknown Verified 06/01/25 10:00 Bactrim) trimethoprim (From Bactrim) Allergy Unknown Verified 06/01/25 10:00 Review of Systems Review of Systems: Yes all other systems are reviewed and are negative PMFSH Past Medical History Attestation statement: The following information was validated with the patient. Source: old records reviewed and nursing notes reviewed Social History Social History Alcohol intake: never Advance Directives: No Advance Directives Information Provided: Yes Physical Exam Vital Signs: Vital Signs: Last Vital Signs Temp 97.4 F 06/01/25 12:00 Pulse 73 06/01/25 14:24 Resp 15 06/01/25 14:24 BP 126/60 06/01/25 14:24 Pulse Ox 98 06/01/25 14:24 O2 Del Method Room Air 06/01/25 14:24 BMI result Body Mass Index 18.4 vital signs stable General: sleeping, in NAD Skin: Warm, dry, intact. No rashes or lesions. Head: + noted right periorbital ecchymosis, mild edema noted to right upper eyelid. EOMs intact without entrapment. PERRLA. no palpable skull facture. no battles sign, ecchymosis to L periorbital region. EENT: Hearing is intact b/l. Conjunctiva clear. Moist mucous membranes.?no nasal deformity or septal hematoma. Cardiac: Chest wall symmetric. RRR Lungs: Normal respiratory effort without accessory muscle use. CTA bilaterally Abdomen: Soft, non-tender, non-distended. No rebound tenderness or guarding. Positive BS x4. Back: No midline spinous or paraspinal tenderness. No step off deformity. Ext: Upper and lower extremities atraumatic, without tenderness, deformity, swelling or erythema. Full ROM throughout Neuro: Ambulating with steady gait. Course Course Course Narrative: CT head without intracranial bleed. CT cervical spine without fracture. CT facial bones show comminuted nasal bone fracture, no other facial/orbital fracture. Patient has been quite sedated since arrival to the ED. He has bruising to his right periorbital region, his pupils are equal, round, reactive to light. No trauma noted. He has remained bradycardic, likely secondary to his beta wilder. His BP has been soft although he has been sleeping. 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 I do not feel as though patient is stable for discharge. I discussed with my attending, dr. tobias. Recommends monitoring vitals, giving 1L IVF and re-assessing. 1451 -- Patient awake, alert. making hand gestures indicating that he is hungry. He is tolerating pudding, crackers, cheese stick, water. acting baseline per nursing home staff. His vitals have improved - BP 126/60 HR 73. He is stable. Discussed work up results with both patient and nursing home staff at bedside. Advised f/u with ENT for nasal bone fractures. Advised Motrin/Tylenol at home as well as ice for periorbital bruising. Patient has remained stable throughout ED visit today. Discussed worrisome signs and symptoms and when to return to the ED. All questions answered at this time. Patient is stable for discharge back to his nursing home with staff. Medications Administered Discontinued Medications Generic Name Dose Route Start Last Admin Trade Name Freq PRN Reason Stop Dose Admin Sodium Chloride 1,000 mls @ 999 mls/hr 06/01/25 13:00 06/01/25 13:10 Ns IV 06/01/25 14:00 999 mls/hr .Q1H1M ASHLEY Administration Medical Decision Making Medical Decision Making MDM Narrative: 24 year old nonverbal male with pmhx significant for autism presents to the ED today with nursing home staff for evaluation following a head injury. patient is bradycardic. on exam, noted right periorbital ecchymosis, mild edema noted to right upper eyelid. EOMs intact without entrapment. PERRLA. no palpable skull facture. no battles sign, ecchymosis to L periorbital region. No nasal deformity, septal hematoma, epistaxis. Differential diagnosis concussion, closed head injury, TBI, intracranial bleed, facial fracture, contusion. Plan for imaging, observation, and disposition. Differential Diagnosis Differential Diagnoses: The differential diagnosis associated with the presentation includes as above. Admission/Observation not indicated. Independent Interpretation I performed an independent interpretation of an: CT Scan Interpretation: ct head without bleed ct facial bones without orbital fracture ct cervical spine without fracture Radiology Impression Discussion of test interpretation with radiology: I have reviewed the radiologist's reading. Radiologist Impression: Procedure(s): CT head/brain wo IV con Accession Number(s): [id number] cc: Ev Savage COMPUTATIONAL LINGUIST; Paulette Palomino~ Report Number: [id number]: Total DLP = 1312.08 mGy-cm Reason for Exam: head injury, tired EXAMINATION: CT HEAD WITHOUT CONTRAST CLINICAL INFORMATION: head injury, tired COMPARISON: None available. TECHNIQUE: Contiguous axial imaging was performed from the skull base to vertex without intravenous administration of contrast. This CT examination was performed using dose optimization techniques as appropriate, variously including the following: *Automated exposure control *Adjustment of mA and/or kV according to patient size (this includes techniques or standardized protocols for targeted exams where dose is matched to indication/reason for exam; i.e. extremities or head) *Use of iterative reconstruction technique DLP: 749.34 mGy-cm FINDINGS: No acute cortical disruption in the bony calvarium or the skull base. No acute intracranial hemorrhage, mass effect, midline shift, hydrocephalus or herniation. Hodgson-white matter differentiation is normal. Posterior cranial fossa contents demonstrated no acute hemorrhage or mass effect. Normal position of the cerebellar tonsils. Sellar/suprasellar region demonstrated no gross masses. No air-fluid levels in the paranasal sinuses. Tympanic cavities and mastoid cells are aerated. CT/CT head/brain wo IV con IMPRESSION: No acute fracture, bony calvarium. No acute intracranial hemorrhage or acute brain abnormality by CT. EXAMINATION: CT CERVICAL SPINE WITHOUT CONTRAST CLINICAL INFORMATION: Injury. COMPARISON: None available. TECHNIQUE: Contiguous axial images through the cervical spine using 3 mm collimation with bone and soft tissue algorithm. Sagittal and coronal reformatted images acquired. This CT examination was performed using dose optimization techniques as appropriate, variously including the following: *Automated exposure control *Adjustment of mA and/or kV according to patient size (this includes techniques or standardized protocols for targeted exams where dose is matched to indication/reason for exam; i.e. extremities or head) *Use of iterative reconstruction technique. DLP: 285.36 mGy-cm FINDINGS: Craniocervical junction is intact with normal alignment between the occipital condyles and lateral masses of C1. Inadequate position of the cervical spine with the head tilted to the right side. C1 is intact. C2 is intact. C3 is intact. C4 is intact. C5 is intact. C6 is intact. C7 is intact. No prevertebral compartment hematoma. IMPRESSION: No acute fracture or trauma-related listhesis. Fleischner guidelines were followed. EXAMINATION: CT FACIAL BONES WITHOUT CONTRAST CLINICAL INFORMATION: Injury, black eye. COMPARISON: None available. TECHNIQUE: Contiguous axial images through the maxillofacial bones using 3 mm collimation with bone and soft tissue algorithm. Sagittal and coronal reformatted images acquired. This CT examination was performed using dose optimization techniques as appropriate, variously including the following: *Automated exposure control *Adjustment of mA and/or kV according to patient size (this includes techniques or standardized protocols for targeted exams where dose is matched to indication/reason for exam; i.e. extremities or head) *Use of iterative reconstruction technique. DLP: 269.88. mGy-cm FINDINGS: Comminuted cortical disruption in the nasal bones. Nasal septum and vomer are intact. The orbital rims, orbital fissures and orbital apices are intact. The eyeballs are intact. No intraconal or extraconal compartment hematoma. Soft tissue contusion the preseptal right periorbital/forehead region. Maxilla and pterygoid plates are intact. Mandible is intact. Temporomandibular joints are intact. No air-fluid levels in the paranasal sinuses. Polypoid mucosal thickening, right maxillary sinus. Tympanic cavities and mastoid cells are aerated. Pneumatized left petrous apex, congenital. Pneumatized right pterygoid recess of the sphenoid sinus. Pneumatized anterior clinoid, bilaterally. IMPRESSION: Comminuted fractures, nasal bones. Electronically signed by: James Zaragoza MD 06/01/2025 11:40 AM [facility] Independent Historian Clinical information obtained from an independent historian. History obtained from or confirmed by: Other (nursing home staff) External Record Review External record reviewed: Inpatient record Prescription Management I considered prescription management with: Pain Medication Social Determinants Patient?s care significantly limited by Social Determinants of Health including: Other Social Determinant of Health Critical Care Time Critical Care Time Critical Care Time: No Discharge Plan Discharge Clinical Impression: Closed fracture nasal bone Patient Disposition: Home, Self-Care Instructions: Nasal Fracture (ED) Additional Instructions: Crow was evaluated in the ED today following a head injury. The CT scan of his head/neck does not reveal intracranial bleed or cervical fracture. The CT scan of his face shows fracture of the nasal bones. There is no emergent management for this. I recommend you take 600mg ibuprofen every 6 hours or Tylenol 650mg every 6 hours as needed for pain. If needed, you can alternate these medications so that you take one medication every 3 hours. For example, at noon take ibuprofen, then at 3pm take Tylenol, then at 6pm take ibuprofen. You may apply ice to his nose and eye to help with pain/swelling. Please follow up with ENT specialist. You have been provided with a referral. Call them to [facility], they will not call you. Return with any new or worsening symptoms. In the case of an emergency call 911. Prescriptions: No Action diazepam 10 mg Tablet 10 mg PO BEDTIME fluticasone propionate 50 mcg/actuation spray,suspension 1 spray intranasal BID Rx Instructions: each nostril olanzapine 5 mg tablet,disintegrating 5 mg PO BEDTIME ascorbic acid (vitamin C) [Vitamin C] 250 mg Tablet 250 mg PO DAILY fluticasone propionate 100 mcg/actuation Blister With Device 1 inh INHALATION BID omeprazole 20 mg Capsule,Delayed Release(Dr/Ec) 20 mg PO DAILY Vitamin D3 100 mcg (4,000 unit) Capsule 100 mcg PO DAILY polyethylene glycol 3350 17 gram Powder In Packet 17 g PO DAILY oxcarbazepine 300 mg Tablet 300 mg PO BID acetaminophen 650 mg Tablet 650 mg PO Q6H PRN (Reason: Pain) bisacodyl 5 mg Tablet 10 mg PO DAILY PRN (Reason: Constipation) Ensure Original Liquid 1 ea PO TIDWMEAL melatonin 3 mg Capsule 6 mg PO BEDTIME PRN (Reason: Insomnia) propranolol 20 mg Tablet 20 mg PO TID Qty: 90 0RF Protocol: Hold for SBP/HR < HOLD for SBP < : 90 HOLD for HR < : 60 chlorpromazine 100 mg Tablet 200 mg PO TID Qty: 90 0RF diazepam 5 mg Tablet 10 mg PO BEDTIME Qty: 60 0RF diazepam 5 mg Tablet 5 mg PO BID@0800,1300 Qty: 60 0RF divalproex 500 mg Tablet,Delayed Release (Dr/Ec) 500 mg PO BID Qty: 60 0RF olanzapine 10 mg Tablet 10 mg PO TID Qty: 90 0RF diazepam 5 mg tablet 5 mg PO BID Qty: 60 0RF diazepam 5 mg tablet 5 mg PO BID PRN (Reason: agitation) Qty: 30 0RF divalproex [Depakote] 500 mg tablet,delayed release (DR/EC) 500 mg PO BID Qty: 60 0RF bisacodyl 5 mg tablet 5 mg PO BEDTIME 30 Days Qty: 30 0RF diazepam 10 mg tablet 10 mg PO BEDTIME PRN (Reason: anxiety) Qty: 30 0RF olanzapine [Zyprexa] 10 mg tablet 10 mg PO TID 30 Days Qty: 90 0RF fluticasone propionate 100 mcg/actuation blister with device 1 inh inhalation BID Qty: 60 0RF fluticasone propionate [Flonase Allergy Relief] 50 mcg/actuation spray,suspension 1 spray intranasal BID Qty: 16 0RF Rx Instructions: administer into each nostril Ensure Liquid 1 ea PO TID 30 Days Qty: 5688 0RF divalproex [Depakote] 500 mg tablet,delayed release (DR/EC) 500 mg PO BID 30 Days Qty: 60 0RF melatonin 3 mg capsule 6 mg PO BEDTIME PRN (Reason: sleep) 30 Days 0RF olanzapine [Zyprexa] 5 mg tablet 5 mg PO BEDTIME 30 Days Qty: 30 0RF diphenhydramine HCl [Benadryl Allergy] 25 mg tablet 50 mg PO Q6H PRN (Reason: excessive salivation) 30 Days Qty: 60 0RF omeprazole 20 mg capsule,delayed release(DR/EC) 20 mg PO DAILY Qty: 30 0RF polyethylene glycol 3350 [Miralax] 17 gram powder in packet 17 g PO DAILY Qty: 100 0RF pantoprazole [Protonix] 20 mg tablet,delayed release (DR/EC) 20 mg PO TID 30 Days Qty: 90 0RF oxcarbazepine 300 mg tablet 300 mg PO BID 30 Days Qty: 60 0RF Referrals: [facility] [Provider Group, Ear, Nose, Throat] Referral Note: nasal bone fractures Ev Savage, COMPUTATIONAL LINGUIST [Primary Care Provider, Behavioral Health] Print Language: Lithuanian
--- NOTE | 2025-06-01 13:37 | PC.NURSE ---
Pt awake, asking staff for food.
== END 2025-06-01 15:37 | disposition home or self-care (01) ==
PROVIDERS: Emergency Provider Emergency Medicine; PCP Registered Nurse Community Health
DX: S02.2XXA Fracture of nasal bones, initial encounter for closed fracture (principal); S00.11XA Contusion of right eyelid and periocular area, initial encounter; F84.0 Autistic disorder; R00.1 Bradycardia, unspecified; X83.8XXA Intentional self-harm by other specified means, initial encounter; Y93.89 Activity, other specified; Y92.198 Other place in other specified residential institution as the place of occurrence of the external cause; Y99.8 Other external cause status
CPT/HCPCS: 70450; 70486; 72125; 96360; 96361; 99284

== ENCOUNTER → 2025-06-01 10:21 | Outpatient (BNV) | payer OTHER, SELFPAY | PROVIDERS: Emergency Provider Emergency Medicine; PCP Registered Nurse Community Health; Visit Provider Radiology Diagnostic Radiology | DX: Z04.3 Encounter for examination and observation following other accident (principal); S02.2XXA Fracture of nasal bones, initial encounter for closed fracture; S09.90XA Unspecified injury of head, initial encounter | CPT/HCPCS: 70450; 70486; 72125 ==